=== PATIENT | male | born 1950 | race Caucasian/White ===

== ENCOUNTER 2024-09-20 10:43 | Observation (INO) | payer MEDICARE ==
[2024-09-20] MEDS ORDERED: Nitroglycerin 0.4 MG TAB (25 Tab Bottle) SL PRN (12:37)
[2024-09-20 12:49] VITALS: BMI 40.1
[2024-09-20 13:26] LABS: ALT (SGPT) 25 U/L (Less than 45); AST (SGOT) 21 U/L (11-34); Albumin 4.5 g/dL (3.1-4.5); Alkaline Phosphatase 52 U/L (40-110); Anion Gap 16 mmol/L (10-20); BUN (Urea Nitrogen) 17 mg/dL (8.4-25.7); Bilirubin, Total 0.5 mg/dL (0.3-1.2); Calc. Creatinine Clearance 92 mL/min (70-130); Calcium 9.7 mg/dL (7.8-10.44); Carbon Dioxide 24 mmol/L (23-31); Chloride 107 mmol/L (98-107); Globulin 3.1 g/dL (2.4-3.5); Glucose 107 mg/dL (83-110); Potassium 4.4 mmol/L (3.5-5.1); Sodium 143 mmol/L (136-145)
[2024-09-20 13:31] LABS: Troponin I Less than 0.010 ng/mL (< 0.028)
[2024-09-20] MEDS ORDERED: Dextrose 50% Abboject 50 ML SYRINGE SLOW IVP PRN (13:37)
[2024-09-20] MEDS ORDERED: Glucagon 1 MG/ML KIT IM PRN (13:37)
[2024-09-20] MEDS: Lisinopril 20 MG TAB PO SCH (16:20)
[2024-09-20 16:24] LABS: Troponin I Less than 0.010 ng/mL (< 0.028)
[2024-09-20] MEDS: HYDROcodone/Acetaminophen 10/325 mg Tablet PO PRN (18:09)
[2024-09-20] MEDS: Gabapentin 300 MG CAP PO SCH (20:31)
[2024-09-20] MEDS: Simvastatin 10 MG TAB PO SCH (20:31)
[2024-09-21 04:27] LABS: #Basophils 0.08 10x3/uL (0.0-0.2); #Eosinophils 0.28 10x3/uL (0.0-0.5); #Monocytes 0.56 10x3/uL (0.0-1.1); #Neutrophils 4.57 10x3/uL (1.5-8.4); %Basophils 1.0 % (0.0-2.0); %Eosinophils 3.4 % (0.0-6.0); %Lymphocytes 33.2 % (18.0-47.0); %Monocytes 6.8 % (0.0-10.0); %Neutrophils 55.1 % (40.0-75.0); Hematocrit 40.1 % (38.8-50.0); Hemoglobin 13.4 g/dL (13.5-17.5); Mean Corpuscular Hemoglobin 32.1 pg (27.0-33.0); Mean Corpuscular Volume 96.2 fL (81.2-95.1); Platelet Count 193 10x3/uL (150-450); Red Blood Cell (RBC) Count 4.17 10x6/uL (4.32-5.72); White Blood Cell (WBC) Count 8.28 10x3/uL (3.5-10.5)
[2024-09-21 04:50] LABS: Anion Gap 17 mmol/L (10-20); BUN (Urea Nitrogen) 15 mg/dL (8.4-25.7); Calc. Creatinine Clearance 95 mL/min (70-130); Calcium 9.1 mg/dL (7.8-10.44); Carbon Dioxide 22 mmol/L (23-31); Cardiac Risk 3.5 (Less than 4.5); Chloride 108 mmol/L (98-107); Cholesterol 152 mg/dl (< 200 Desired); Glucose 102 mg/dL (83-110); HDL Cholesterol 44 mg/dL (>60 Neg Risk); LDL Cholesterol, Calculated 85 mg/dL; Potassium 4.1 mmol/L (3.5-5.1); Sodium 143 mmol/L (136-145); Triglycerides 117 mg/dL (Less than 150)
[2024-09-21] MEDS: Enoxaparin 40 MG (0.4 mL) SYRINGE SC SCH (09:00)
[2024-09-21] MEDS: Lisinopril 20 MG TAB PO SCH (09:01)
[2024-09-21] MEDS: Aspirin Chewable 81 MG TAB PO SCH (09:01)
[2024-09-21 12:15] VITALS: BP 146/68; TEMP 98.6
== END 2024-09-21 12:16 | disposition home or self-care (01) ==
LOC: CSHTELE 12:04
PROVIDERS: ADMIT Hospitalist; ATTEND Hospitalist
PROC: B245ZZZ Ultrasonography of Left Heart (ICD-10-PCS; principal; 2024-09-20)
DX: R07.89 Other chest pain (principal); I10 Essential (primary) hypertension; E78.5 Hyperlipidemia, unspecified; E11.9 Type 2 diabetes mellitus without complications; Z79.85 Long-term (current) use of injectable non-insulin antidiabetic drugs; Z79.899 Other long term (current) drug therapy
CPT/HCPCS: 80048; 80053; 80061; 82962; 84484 ×2; 85025; 93005; 93306; J1650; 36415; 36416; 93010; 96372; G0378